=== PATIENT | male | born 1950 | race Caucasian/White ===

== ENCOUNTER 2019-07-05 11:23 | Outpatient (CLI) | payer OTHER, SELFPAY ==
--- NOTE | ~2019-07-05 | XR_ITS ---
EXAMINATION: XR chest 2V 07/05/2019 11:43 INDICATION: Cough and congestion PROCEDURE: PA and lateral views of the chest COMPARISON: Comparison to multiple prior studies sequentially, with oldest reviewed study dated 12/02. FINDINGS: The lungs are clear. The cardiomediastinal silhouette is within normal limits. There are no pleural effusions. There is no pneumothorax suspected. IMPRESSION: 1: NO ACUTE CARDIOPULMONARY DISEASE. Reviewed, dictated and finalized at location A.
== END 2019-07-05 11:24 | disposition home or self-care (01) ==
LOC: ANHIMG 11:30
PROVIDERS: PCP Family Medicine; Visit Provider Nurse Practitioner Family
DX: R05 Cough (principal); R09.89 Other specified symptoms and signs involving the circulatory and respiratory systems
CPT/HCPCS: 71046

== ENCOUNTER → 2020-01-12 12:00 | Outpatient (CLI) | payer OTHER, SELFPAY ==
--- NOTE | ~2020-01-12 | XR_ITS ---
EXAMINATION: XR chest 2V DATE: 01/12/2020 12:22 INDICATION: Cough. TECHNIQUE: Frontal and lateral views of the chest were obtained. COMPARISON: Chest 2 views 07/05/19, CT abdomen and pelvis 10/22/2018 FINDINGS: The chest demonstrates clear lungs without pneumonia, pleural effusion, or pneumothorax. Th e heart size is normal. IMPRESSION: 1. No acute cardiopulmonary disease. Reviewed, dictated and finalized at location B. N MALLOW DIPPER
== END ==
PROVIDERS: Visit Provider Physician Assistant Medical
DX: R05 Cough (principal)
CPT/HCPCS: 71046

== ENCOUNTER 2020-03-27 13:28 | Outpatient (CLI) | payer OTHER, SELFPAY ==
--- NOTE | 2020-03-30 14:08 | WPDPFTINT ---
PFT Interpretation PFT Interpretation: This PFT met all criteria for ATS standards and reproducibility FEV/FVC post bronchodilator 70% FEV1 78% or 2.42 liters FVC 76% or 3.47 liters TLC 102% RV 128% RV/TLC 48% DLCO 80% when adjusted for alveolar volume but not adjusted for hemoglobin Flow volume loops appeared normal Impression: Mild to moderate airflow obstruction with air trapping and borderline diffusion capacity. This pattern may be suggestive of COPD. Clinical correlation is advised.
== END 2020-03-27 13:29 | disposition home or self-care (01) ==
PROVIDERS: PCP Family Medicine; Visit Provider Physician Assistant Medical
DX: R05 Cough (principal); R06.02 Shortness of breath; R94.2 Abnormal results of pulmonary function studies
CPT/HCPCS: 94060; 94726; 94729

== ENCOUNTER 2020-04-10 10:10 | Emergency (ER) | payer OTHER, SELFPAY ==
[2020-04-10] VITALS (18 sets, daily range): BP systolic 158–204; BP diastolic 89–126; PULSE 54–71; RESP 10–20; TEMP 36.6; O2SAT 91–97
--- NOTE | ~2020-04-10 | XR_ITS ---
XR chest 2V 04/10/2020 12:39 Indication: Hemoptysis Procedure: PA and lateral views of the chest Comparison: Comparison to multiple prior studies sequentially, with oldest reviewed study dated 04/22. Findings: Heart size normal. No focal air space disease, pulmonary edema, pleural effusion or suspect ed pneumothorax. No acute osseous abnormality. Impression: 1: No acute cardiopulmonary disease. Reviewed, dictated and finalized at location B. OR ENERGY TRADER Impression: 1: No acute cardiopulmonary disease.
--- NOTE | ~2020-04-10 | CT_ITS ---
EXAMINATION: CTA chest PE protocol DATE: 04/10/2020 13:33 INDICATION: Hemoptysis, shortness of breath with exertion TECHNIQUE: Computed tomography angiography (CTA) of the chest was performed with 200 mL Omnipaque-350 intravenous contrast timed to evaluate the pulmonary arteries. Coronal maximum intensity projection 3D-reconstructions were created by the technologist. The dose-length product (DLP) was 1848.86 mGy-cm . Automated exposure control and iterative reconstruction technique were employed. COMPARISON: None. FINDINGS: The pulmonary arteries are well-opacified. No pulmonary embolism is identified. There are m inimal opacities of the lung bases and lingula. No pleural effusion or pneumothorax is identified. Th ere is mild bilateral hilar lymphadenopathy. The heart size is normal. There are bridging osteophytes at multiple levels in the spine, consistent with diffuse idiopathic skeletal hyperostosis (DISH). Th ere is a partially imaged cystic lesion of the body of the pancreas. IMPRESSION: 1. No pulmonary embolism identified. 2. Patchy opacities of the lower lobes and lingula, pneumonia versus atelectasis. 3. Mild bilateral hilar lymphadenopathy, likely reactive. 4. Cystic lesion of the pancreatic body. Differential is as previously described. Follow-up with endo scopic ultrasound and surgical consultation are recommended if not previously performed. Reviewed, dictated and finalized at location A. ANY SECRETARY IMPRESSION: 1. No pulmonary embolism identified. 2. Patchy opacities of the lower lobes and lingula, pneumonia versus atelectasi s. 3. Mild bilateral hilar lymphadenopathy, likely reactive. 4. Cystic lesion of the pancreatic body. Differential is as previously describe d. Follow-up with endoscopic ultrasound and surgical consultation are recommend ed if not previously performed.
--- NOTE | 2020-04-10 11:55 | ECG_ITS ---
Measurements Intervals [place] Rate: 54 P: 12 AR: 119 QRS: 11 QRSD: 106 T: 12 QT: 447 QTc: 424 Interpretive Statements SINUS BRADYCARDIA WITH SINUS ARRHYTHMIA WITH SHORT AR INTERVAL INFERIOR INFARCT, AGE INDETERMINATE BORDERLINE T WAVE ABNORMALITY- ANTEROLATERAL LEADS BASELINE WANDER- I, II, AVR, AVL, V1-V6 ABNORMAL ECG Electronically Signed On 04-10-2020 13:48:59 [employer] MACHINE FEEDER by Sree Díaz D.O.
--- NOTE | 2020-04-10 11:56 | ED.GENADULT ---
HPI - General Adult General Chief complaint: Unspecified Stated complaint: coughing up blood Time Seen by Provider: 04/10/20 11:43 Source: patient Mode of arrival: ambulatory Limitations: no limitations History of Present Illness HPI narrative: This patient is a 69 year old male with history of COPD , hyperlipidemia and hypertension who presents for evaluation of hemoptysis. He reports he has been dealing with a cough for 1 year. He was diagnosed with COPD 1 week ago, and he has been started on Trelogy. He states he thought he was doing better. Today he noticed blood when he started coughing. He states it was a mixture of mucous and blood. Just on arrival he states the bleeding is less. He states initially it quantifies blood as size of a rice. He denies chest pain, fever, chills, epistaxis or bleeding issues. He denies taking blood thinners. He denies shortness of breath but reports he does get sob with exertion. Related Data Home Medications Medication Instructions Recorded Confirmed dulaglutide 1.5 mg/0.5 mL 1.5 mg SUB-Q WEEKLY 08/26/19 02/02/20 subcutaneous pen injector Allergies Allergy/AdvReac Type Severity Reaction Status Date / Time metformin Allergy Mild Unknown Verified 04/10/20 12:49 Review of Systems Review of Systems: Narrative: CONSTITUTIONAL: Denies fever, chills, or sweats. EYES: Denies visual changes, redness, or discharge. ENT: Denies rhinorrhea, congestion, sore throat, or otalgia. CARDIOVASCULAR: Denies chest pain, palpitations, or edema. RESPIRATORY: Reports cough, hemoptysis GASTROINTESTINAL: Denies abdominal pain, nausea, vomiting, or diarrhea. GENITOURINARY: Denies dysuria or hematuria. SKIN: Denies rash or itching. MUSCULOSKELETAL: Denies back pain, joint pain, or myalgia. NEUROLOGIC: Denies headache, numbness, or weakness. PSYCHIATRIC: Denies anxiety or depression. All systems reviewed & are unremarkable except as noted in HPI and below PMFSH Past Medical History Medical History Anemia DM w/o complication type II Essential (primary) hypertension Family history of colon cancer in father Hepatic steatosis Idiopathic gout of right shoulder Iron deficiency anemia Kidney malignancy Kidney stones Lesion of pancreas FIDELIA on CPAP Family History Family History Mother Hypertension Family history of coronary artery disease Father Family history of diabetes mellitus in first degree relative Carcinoma of colon Family history of type 2 diabetes mellitus Family history of congestive heart failure Sibling Family history of diabetes mellitus in first degree relative Hypertension Family history of type 2 diabetes mellitus Social History Social History Smoking status: Never smoker Alcohol intake: never Exam Narrative: Exam Narrative: GENERAL: Well-appearing, well-nourished, and in no acute distress. HEAD: Normocephalic, atraumatic EYES: PERRLA and EOMI, conjunctiva clear without discharge THROAT:Mucous membranes moist, Oropharynx normal without erythema, exudate, peritonsillar swelling or fluctuance NECK: Supple, without lymphadenopathy or mass RESPIRATORY: No respiratory distress, Airway patent, Respirations non-labored, Clear to auscultation without rales, rhonchi or wheeze HEART: Regular rate and rhythm. No murmur heard. Normal peripheral pulses. ABDOMEN: Soft, nontender, nondistended, normal active bowel sounds. No masses. No rebound or guarding, No organomegaly. EXTREMITIES: No edema, normal strength with full range of motion. SKIN: Warm, dry, normal color without rash NEURO: Alert and oriented x3. CN 2-12 grossly intact. No focal deficits. PSYCH: Normal mood and affect. Course Reevaluation(s) Reevaluation #1: I discussed case with patient. I discussed plan to discharge on antibiotics and discuss
[2020-04-10 12:13] LABS: Basophils Absolute Auto 0.1 K/mm3 (0.0-0.1); Basophils Percent Auto 0.9 % (0.2-1.2); Eosinophils Absolute Auto 0.3 K/mm3 (0-0.3); Eosinophils Percent Auto 4.3 % (0-4.4); Hematocrit 37.6 % (42.0-52.0); Hemoglobin 12.7 g/dL (14.0-18.0); Immature Granulocyte Absolute 0.04 K/mm3 (0.00-0.031); Immature Granulocyte Percent A 0.5 % (0-0.5); Lymphocytes Absolute Auto 1.93 K/mm3 (0.9-3.2); Lymphocytes Percent Auto 24.3 % (18.3-44.2); Mean Corpuscular HGB Conc 33.8 g/dl (32-36); Mean Corpuscular Volume 88.7 fl (80-100); Mean Platelet Volume 9.8 fl (7.4-10.4); Monocytes Absolute Auto 0.5 K/mm3 (0.1-0.6); Monocytes Percent Auto 5.8 % (2.6-8.5); Neutrophils Absolute Auto 5.1 K/mm3 (1.3-6.7); Neutrophils Percent Auto 64.2 % (45.5-73.1); Platelet Count Result 176 k/mm3 (150-375); Red Blood Count 4.24 M/mm3 (4.6-6.20); Red Cell Distribution Width 14.4 % (11.5-14.5); White Blood Count 7.9 K/mm3 (4.5-10.0)
[2020-04-10 12:24] LABS: Alanine Aminotransferase 54 U/L (4-50); Albumin Level 4.3 g/dL (3.5-5.1); Alkaline Phosphatase 84 U/L (38-126); Anion Gap 5 mmol/L (8-16); Aspartate Amino Transferase 64 U/L (17-59); Bilirubin,Total 0.7 mg/dL (0.2-1.3); Blood Urea Nitrogen 18 mg/dL (9-20); Calcium 9.1 mg/dL (8.4-10.2); Carbon Dioxide 31 mmol/L (22-30); Chloride 105 mmol/L (98-107); Estimated CRCL calculation 105 ml/min; Estimated Glomerular Filt Rate > 60; Glucose 162 mg/dL (75-110); Potassium 4.3 mmol/L (3.4-5.0); Sodium 141 mmol/L (137-145)
[2020-04-10 12:25] LABS: INR 0.9; Prothrombin Time 12.9 Seconds (11.1-14.7)
[2020-04-10 12:26] LABS: Partial Thromboplastin Time 26.6 SECONDS (22.3-36.8)
--- NOTE | 2020-04-10 12:57 | PC.NURSE ---
all tests resulted. waiting for further orders vs disposition from provider.
--- NOTE | 2020-04-10 13:16 | PC.NURSE ---
provider in room.
--- NOTE | 2020-04-10 13:19 | PC.NURSE ---
patient to CT.
--- NOTE | 2020-04-10 14:26 | PC.NURSE ---
all tests resulted. resting on stretcher. has been assisted to use the restroom. alert. oriented.
[2020-04-10] MEDS: LOSARTAN POTASSIUM 50 MG TABLET PO (14:35)
--- NOTE | 2020-04-10 14:42 | PC.NURSE ---
covid swab done.
[2020-04-10 23:24] LABS: SARS-CoV-2 RNA PCR Negative
== END 2020-04-10 15:02 | disposition home or self-care (01) ==
PROVIDERS: Emergency Provider General Practice; PCP Family Medicine
DX: J18.9 Pneumonia, unspecified organism (principal); I10 Essential (primary) hypertension; K86.2 Cyst of pancreas; Z20.822 Contact with and (suspected) exposure to COVID-19; E11.9 Type 2 diabetes mellitus without complications; J44.9 Chronic obstructive pulmonary disease, unspecified; M10.011 Idiopathic gout, right shoulder; D50.9 Iron deficiency anemia, unspecified; Z87.442 Personal history of urinary calculi; G47.33 Obstructive sleep apnea (adult) (pediatric); Z85.528 Personal history of other malignant neoplasm of kidney; R00.1 Bradycardia, unspecified; R94.31 Abnormal electrocardiogram [ECG] [EKG]
CPT/HCPCS: 36415; 71046; 71275; 80053; 85025; 85610; 85730; 93005; 99284; A9270; C9803; Q9967; U0003; U0005

== ENCOUNTER → 2020-08-05 00:38 | Outpatient (CLI) | payer OTHER, SELFPAY ==
[2020-08-05 19:37] LABS: SARS-CoV-2 RNA PCR Negative
== END ==
PROVIDERS: PCP Family Medicine; Visit Provider Internal Medicine Gastroenterology
DX: Z01.812 Encounter for preprocedural laboratory examination (principal); Z20.822 Contact with and (suspected) exposure to COVID-19
CPT/HCPCS: C9803; U0003; U0005

== ENCOUNTER 2020-08-09 01:17 | Day surgery (SDC) | payer OTHER, SELFPAY ==
[2020-08-02 13:21] VITALS: BMI 39.6
[2020-08-09 09:38] VITALS: BP 162/87; PULSE 60; RESP 18; TEMP 36.2; O2SAT 99
[2020-08-09] MEDS: LACTATED RINGERS 1,000 ML 150 ML IV CONT (09:48)
[2020-08-09 09:54] LABS: Glucose Point of Care 157 mg/dl (65-105)
--- NOTE | 2020-08-09 10:01 | WPDANESEPPF ---
Anes - Initial Pre Proc Eval Procedure: Operation Date: 08/09/20 10:30 Proposed Procedures p Esophagogastroduodenoscopy & Colonoscopy - Ney Hernandez MD Date/Time: 08/09/20 10:01 Surgeon: Ney Hernandez MD Pre Op Diagnosis: Iron def. Anemia Patient Data Age: 70 Gender: M Height: 5 ft 11 in Weight: 129.6 kg Last Vital Signs Temp 97.2 F L 08/09/20 09:38 Pulse 60 08/09/20 09:38 Resp 18 08/09/20 09:38 BP 162/87 H 08/09/20 09:38 Pulse Ox 99 08/09/20 09:38 Allergies Allergy/AdvReac Type Severity Reaction Status Date / Time metformin Allergy Mild Unknown Verified 08/09/20 09:36 Home Medications Medication Instructions Recorded Confirmed Type dulaglutide 1.5 mg/0.5 mL 1.5 mg SUB-Q WEEKLY 08/26/19 08/02/20 History subcutaneous pen injector escitalopram oxalate 10 mg tablet 10 mg PO DAILY #90 tablet 10/18/19 08/02/20 Rx albuterol sulfate 90 mcg/actuation See Rx Instructions .ROUTE 03/07/20 08/02/20 Rx aerosol inhaler .COMPLEX #54 gm allopurinol 300 mg tablet 300 mg PO DAILY #90 tablet 03/14/20 08/02/20 Rx losartan 100 mg tablet 100 mg PO DAILY #30 tablet 05/03/20 08/02/20 Rx ferrous sulfate 325 mg (65 mg See Rx Instructions .ROUTE 06/01/20 08/02/20 Rx iron) tablet .COMPLEX #90 tablet montelukast 10 mg tablet 10 mg PO DAILY #30 tablet 06/01/20 08/02/20 Rx rosuvastatin 20 mg tablet See Rx Instructions .ROUTE 07/02/20 08/02/20 Rx .COMPLEX #90 tablet emipyhywwlh-iqlwmzhsa-emdwexub 1 inh INHALATION DAILY 08/02/20 08/02/20 History [Trelegy Ellipta] Laboratory Tests 08/09/20 09:51 POC Capillary Glucose 157 mg/dl H mg/dl (65-105) Patient hx anesthesia problems: none Family hx anesthesia problems: none PMFSH Past Medical History Medical History Anemia BMI 39.0-39.9,adult DM w/o complication type II Essential (primary) hypertension Family history of colon cancer in father Hepatic steatosis Idiopathic gout of right shoulder Iron deficiency anemia Kidney malignancy Kidney stones Lesion of pancreas FIDELIA on CPAP Family History Family History Mother Hypertension Family history of coronary artery disease Father Family history of diabetes mellitus in first degree relative Carcinoma of colon Family history of type 2 diabetes mellitus Family history of congestive heart failure Sibling Family history of diabetes mellitus in first degree relative Hypertension Family history of type 2 diabetes mellitus Social History Social History (Updated 06/07/20 @ 09:19 by Mala Ramos) Smoking status: Never smoker Alcohol intake: never Substance use: current Substance use type: marijuana Living arrangements: with family Spiritual care concerns: No Anes - Eval Final PreProcedure Day of Procedure 08/09/20 10:01 Patient weight: morbidly obese Heart: regular rate and rhythm Lungs: clear to auscultation Airway: Mallampati scale class III Neurological: alert and oriented Last oral intake: >/= 8 hours ASA classification: IV Emergent: no Anesthetic plan: proceed Anesthesia type and monitoring: general GIVS and standard monitoring Informed Consent: The patient's anesthetic plan and its attendant risks and benefits were discussed with the patient/family/POA. Questions were solicited and answers provided to the satisfaction of the patient/family/POA.
--- NOTE | 2020-08-09 10:08 | PM.HPGS ---
History of Present Illness History of Present Illness Consent: Risks, benefits, and alternatives have been discussed and questions answered. Patient agrees to proceed with procedure. Chief complaint: Iron def. Anemia Narrative: Jorge Turcios is a 70 year old male here for egd and colonoscopy, with BETH but denies overt-gib, history of right kidney cancer s/p nephrectomy 3 years ago, had pancreatic cyst 2015 with EUS revealed benign lesion and normal egd. Also last colonoscopy 2018 with polyp, father with colon cancer. He also has sister diagnosed with Yepez syndrome (had gynecological malignancy), he has not been tested. Also abnormal CT scan in 2019 that showed possible lesion in bladder, 3.6 cm pancreatic cyst (larger than previously) Review of Systems Constitutional: Constitutional: Denies headache(s) and Denies weakness Eyes: Eyes: Denies blurry vision ENT: Reports Normal hearing present, Denies headache(s) and Denies neck pain Cardiovascular: Cardiovascular: Denies chest pain and Denies dyspnea Respiratory: Respiratory: Denies dyspnea Gastrointestinal: Gastrointestinal: Reports no additional gastrointestinal complaints Genitourinary: Genitourinary: Denies dysuria Musculoskeletal: Musculoskeletal: Denies neck pain Integumentary/Breasts: Skin/Breast: Denies dry skin Neurologic: Reports Normal hearing present, Denies headache(s) and Denies weakness Psychiatric: Psychiatric: Denies anxiety Endocrine: Endocrine: Denies change in body appearance Hematologic/Lymphatic: Hematologic/Lymphatic: Denies easy bleeding Allergic/Immunologic: Allergic/Immunologic: Denies urticaria PMFSH Past Medical History Medical History (Updated 08/09/20 @ 10:09 by Ney Hernandez MD) Anemia BMI 39.0-39.9,adult DM w/o complication type II Essential (primary) hypertension Family history of colon cancer in father Hepatic steatosis Idiopathic gout of right shoulder Iron deficiency anemia Iron deficiency anemia Kidney malignancy Kidney stones Lesion of pancreas FIDELIA on CPAP Family History Family History Mother Hypertension Family history of coronary artery disease Father Family history of diabetes mellitus in first degree relative Carcinoma of colon Family history of type 2 diabetes mellitus Family history of congestive heart failure Sibling Family history of diabetes mellitus in first degree relative Hypertension Family history of type 2 diabetes mellitus Social History Social History (Updated 06/07/20 @ 09:19 by Mala Ramos) Smoking status: Never smoker Alcohol intake: never Substance use: current Substance use type: marijuana Living arrangements: with family Spiritual care concerns: No Meds Home Medications and Allergies Home Medications Medication Instructions Recorded Confirmed Type dulaglutide 1.5 mg/0.5 mL 1.5 mg SUB-Q WEEKLY 08/26/19 08/02/20 History subcutaneous pen injector escitalopram oxalate 10 mg tablet 10 mg PO DAILY #90 tablet 10/18/19 08/02/20 Rx albuterol sulfate 90 mcg/actuation See Rx Instructions .ROUTE 03/07/20 08/02/20 Rx aerosol inhaler .COMPLEX #54 gm allopurinol 300 mg tablet 300 mg PO DAILY #90 tablet 03/14/20 08/02/20 Rx losartan 100 mg tablet 100 mg PO DAILY #30 tablet 05/03/20 08/02/20 Rx ferrous sulfate 325 mg (65 mg See Rx Instructions .ROUTE 06/01/20 08/02/20 Rx iron) tablet .COMPLEX #90 tablet montelukast 10 mg tablet 10 mg PO DAILY #30 tablet 06/01/20 08/02/20 Rx rosuvastatin 20 mg tablet See Rx Instructions .ROUTE 07/02/20 08/02/20 Rx .COMPLEX #90 tablet pbofiyfajqp-hulwjgtqj-xlurlspu 1 inh INHALATION DAILY 08/02/20 08/02/20 History [Ramin Buckner] Allergies Allergy/AdvReac Type Severity Reaction Status Date / Time metformin Allergy Mild Unknown Verified 08/09/20 09:36 Vital Signs Vital Signs - 24 hr 08/09/20 09:38 Temperature 97.2 F L Pulse Rate 60 Respiratory Rat
[2020-08-09 10:57] VITALS: BP 119/73; PULSE 63; RESP 20; O2SAT 96
[2020-08-09 11:07] VITALS: BP 128/71; PULSE 60; RESP 14; O2SAT 95
[2020-08-09 11:17] VITALS: BP 134/82; PULSE 56; RESP 19; O2SAT 96
== END 2020-08-09 11:30 | disposition home or self-care (01) ==
PROVIDERS: PCP Family Medicine; Visit Provider Internal Medicine Gastroenterology
PROC: 0DJ08ZZ Inspection of Upper Intestinal Tract, Via Natural or Artificial Opening Endoscopic (ICD-10-PCS; CPT 43235; principal; 2020-08-09 10:30)
DX: D50.9 Iron deficiency anemia, unspecified (principal); D12.2 Benign neoplasm of ascending colon; D12.4 Benign neoplasm of descending colon; K63.5 Polyp of colon; K64.8 Other hemorrhoids; K86.9 Disease of pancreas, unspecified; Z80.0 Family history of malignant neoplasm of digestive organs; K29.70 Gastritis, unspecified, without bleeding; Z79.51 Long term (current) use of inhaled steroids; E11.9 Type 2 diabetes mellitus without complications; I10 Essential (primary) hypertension; K76.0 Fatty (change of) liver, not elsewhere classified; M10.011 Idiopathic gout, right shoulder; G47.33 Obstructive sleep apnea (adult) (pediatric); Z85.528 Personal history of other malignant neoplasm of kidney; F12.90 Cannabis use, unspecified, uncomplicated; E66.01 Morbid (severe) obesity due to excess calories; Z68.39 Body mass index [BMI] 39.0-39.9, adult; Z90.5 Acquired absence of kidney
CPT/HCPCS: 45380; 45385; 43239; 82948; 88305; C9803; J2250; J2704; J7120; U0003; U0005

== ENCOUNTER 2021-10-26 06:53 | Outpatient (CLI) | payer MEDICARE, SELFPAY ==
--- NOTE | ~2021-10-26 | MR_ITS ---
EXAMINATION: MR MRCP wo/w con/w 3D wo ind DATE: 10/26/2021 08:42 INDICATION: Pancreatic cyst TECHNIQUE: Magnetic resonance imaging (MRI) of the abdomen was performed without and with intravenous contrast. Sequences included coronal T2-weighted SS-FSE ARC, coronal T2-weighted FS SS-FSE, coronal T2-weighted 2D FS FIESTA, Water:Coronal LAVA-Flex, sagittal T2-weighted SS-FSE ARC, axial SSFSE ARC, axial 3D DualEcho, axial DWI B=600, axial T1-weighted LAVA, FAT:Coronal LAVA-Flex, and coronal in and opposed phase LAVA-Flex. Thick-slab T2-weighted FRFSE-XL images were obtained for magnetic resonance cholangiopancreatography (MRCP). Maximum intensity projection 3-D reconstructions of the volumetric data were created by the technologist. Postcontrast sequences included a time course of axial T1-weig hted LAVA, FAT:Coronal LAVA-Flex, coronal in and opposed phase LAVA-Flex, and Water:Coronal LAVA-Flex . COMPARISON: 05/22/2017 CONTRAST: Multihance, 20 cc FINDINGS: ABDOMEN MRI: Cysts of the liver measure up to 11 mm in the right hepatic lobe. There is loss of hepat ic parenchymal signal on opposed phase imaging, consistent with hepatic steatosis. The spleen, gallbl adder, and adrenal glands are normal. There are changes of right nephrectomy. There is a 7 mm hemorrh agic cyst of the left kidney. The left kidney is otherwise unremarkable. There is a 1.2 cm periportal lymph node. There are no dilated loops of bowel. There is a 4.7 x 3.2 cm cystic lesion of the pancre as with continued interval enlargement. There are multiple smaller cystic lesions in the body and the tail of the pancreas which measure up to 6 mm. ABDOMEN MRCP: The cystic mass in the body of the pancreas does not definitely communicate with the ma in pancreatic duct. 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 The pancreatic duct is upper limits of normal in size in the head measuring 4 mm. There is no intrahepatic or extrahepatic biliary dilatation. The common bile duct measures up to 5 mm. IMPRESSION: 1. Enlarging cystic lesion in the body of the pancreas with differential as previously described. Rec ommend correlation for history of pancreatitis. Consider evaluation with endoscopic ultrasound and lugo rgical consultation if not previously performed. 2. Diffuse hepatic steatosis. Reviewed, dictated and finalized at location B. IMPRESSION: 1. Enlarging cystic lesion in the body of the pancreas with differential as pre viously described. Recommend correlation for history of pancreatitis. Consider evaluation with endoscopic ultrasound and surgical consultation if not previous ly performed. 2. Diffuse hepatic steatosis.
== END 2021-10-26 06:54 | disposition home or self-care (01) ==
PROVIDERS: PCP Family Medicine; Visit Provider Nurse Practitioner Family
DX: K86.2 Cyst of pancreas (principal); K76.0 Fatty (change of) liver, not elsewhere classified
CPT/HCPCS: 74183; 76376; A9577

== ENCOUNTER 2022-07-09 08:58 | Inpatient (IN) | payer MEDICARE, SELFPAY ==
[2022-07-09] VITALS (15 sets, daily range): BP systolic 130–168; BP diastolic 69–110; PULSE 70–93; RESP 10–18; TEMP 36.3–36.8; O2SAT 94–100
--- NOTE | ~2022-07-09 | CT_ITS ---
EXAMINATION: CT abdomen pelvis w con DATE: 07/09/2022 10:12 INDICATION: Nausea, vomiting, jaundice and bad taste in the mouth. TECHNIQUE: Computed tomography (CT) of the abdomen and pelvis was performed with 100 mL Omnipaque-350 intravenous contrast. Automated exposure control and iterative reconstruction technique were employe d. The dose-length product was 827.15 mGy-cm. COMPARISON: MRCP dated 10/26/[address] dated 10/22/2018 FINDINGS: Unchanged mild discoid atelectasis/scarring in the left lower lobe. Heart size is normal. Atheroscler otic coronary artery calcification. No pericardial or pleural effusion. Likely reactive distal paraes ophageal lymph node which measures up to 11 mm in maximal short axis diameter unchanged since 10/23/19 19. Spleen and bilateral adrenal glands are normal. 2 mm stone at an upper pole calyx of the left kid riky and 2-3 mm stone at a lower pole calyx. 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 There is mild left hydroureteronephrosis with subtle in creased density in the bladder in the region of the left ureteral orifice. Status post right nephrect jose. With small amount of fluid in the distal right ureteral remnant. There is a new 5.1 x 4.3 x 4.9 cm mixed cystic and enhancing solid mass at the head of the pancreas. There is new moderate atrophy of the more distal pancreas and dilation of the main pancreatic duct. C ontinued slight interval increase in size of a now 3.9 cm diffusely cystic-appearing lesion at the valerie dy of the pancreas which appears to communicate with the main pancreatic duct. Likely secondary moder ate intra and extrahepatic biliary ductal dilation. There is also dilation the gallbladder which freida ures up to 6 cm in maximal diameter with bladder wall thickening and pericholecystic stranding and mi nimal pericholecystic fluid consistent with acute cholecystitis. Moderate-sized fat-containing umbilical hernia and small fat-containing ventral hernia originating ap proximately 2.5 cm to the right of the umbilical hernia. Bowels including the appendix are normal. Vines rgical clip at the exit of the right inguinal canal. No free intraperitoneal gas or fluid. And seen i s small amount of peripheral calcification at a portacaval lymph node which is increased in size from 1.5 cm to 1.8 cm and which could be metastatic or reactive. No other pathologically enlarged abdomin al or pelvic lymphadenopathy. Chronic nodular densities with calcification in the subcutaneous tissue s at the lateral right buttock which could represent sequela of trauma, fat necrosis or injection gra nuloma. Mild scattered degenerative skeletal changes. Unchanged small sclerotic bone island at the an terior right supra-acetabular region. No other suspicious lytic or blastic bone lesions. IMPRESSION: 1. Acute cholecystitis which along with moderate intra and extrahepatic biliary ductal dilation likel y related to obstruction from a 5.1 cm mixed cystic and solid mass at the head of the pancreas suspic ious for either primary pancreatic cancer or metastatic disease related to prior right renal transiti onal cell carcinoma. 2. Increase in size of a portacaval lymph node now measuring 1.8 cm short axis diameter suspicious fo r metastatic disease. 3. 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 Could consider further e valuation with either ultrasound or CT urogram. 4. Moderate-sized fat-containing umbilical hernia and adjacent small right-sided periumbilical ventra l hernia. Reviewed, dictated and finalized at location A.
[2022-07-09 09:06] LABS: Glucose Point of Care 299 mg/dl (65-105)
--- NOTE | 2022-07-09 09:09 | ED.GENADULT ---
HPI - General Adult General Chief complaint: Unspecified <MORELIA Peoples Last Filed: 07/11/22 18:48> Stated complaint: multiple compliants <MORELIA Peoples Last Filed: 07/11/22 18:48> Time Seen by Provider: 07/09/22 09:07 <MORELIA Peoples Last Filed: 07/11/22 18:48> Source: patient and family <MORELIA Peoples Last Filed: 07/11/22 18:48> Mode of arrival: ambulatory <MORELIA Peoples Last Filed: 07/11/22 18:48> Limitations: no limitations <MORELIA Peoples Last Filed: 07/11/22 18:48> History of Present Illness HPI narrative: Patient is a 72 y/o male who presents to the ED with his sister with multiple complaints. Patient reports having a nasty taste in his mouth any time he eats or drinks anything for the last 2 months. He denies an acid or metal/metallic taste but is unable to describe this taste any further. He reports he develops dry mouth very quickly and has had decreased PO intake due to this taste. He c/o intermittent nausea and vomiting, vomiting last occurring last night, described as yellow brown emesis. He has had intermittent pain in his LUQ and right sided abdomen, but denies any currently. He states he coughed up phlegm this morning and noticed a small streak of blood, which prompted his presentation. He has not taken his home medications in the last few days due to not feeling well. He also reports having dark urine and constipation for last 4-5 days, denies dysuria, hematuria, fevers, CP, SOB, rectal bleeding. <MORELIA Peoples Last Filed: 07/11/22 18:48> Related Data Home medications: Home Medications Medication Instructions Recorded Confirmed icosapent ethyl 1 gram capsule 2 g PO BID 02/26/22 07/09/22 (Vascepa) dulaglutide 1.5 mg/0.5 mL 4.5 mg subcut WEEKLY 05/30/22 07/09/22 subcutaneous pen injector (Trulicity) escitalopram oxalate 10 mg tablet 10 mg PO DAILY 07/09/22 07/09/22 rosuvastatin 20 mg tablet 20 mg PO DAILY 07/09/22 07/09/22 <Jesusita Jordan PA-C - Last Filed: 07/11/22 18:48> Allergies/adverse reactions: Allergies Allergy/AdvReac Type Severity Reaction Status Date / Time metformin Allergy Mild Unknown Verified 07/09/22 09:22 cefditoren AdvReac Mild diarrhea Verified 07/09/22 09:22 <MORELIA Peoples Last Filed: 07/11/22 18:48> Review of Systems Review of Systems: CONSTITUTIONAL: Denies fever, chills, or sweats. ENT: See HPI. CARDIOVASCULAR: Denies chest pain, palpitations, or edema. RESPIRATORY: See HPI. GASTROINTESTINAL: See HPI. GENITOURINARY: See HPI. SKIN: Denies rash or itching. MUSCULOSKELETAL: Denies back pain, joint pain, or myalgia. NEUROLOGIC: Denies headache, numbness, or weakness. <MORELIA Peoples Last Filed: 07/11/22 18:48> All systems reviewed & are unremarkable except as noted in HPI and below <MORELIA Peoples Last Filed: 07/11/22 18:48> [facility] Past Medical History Medical History: Medical History Abnormal findings on imaging of biliary tract Adenomatous colon polyp Anemia BMI 33.0-33.9,adult BMI 39.0-39.9,adult DM w/o complication type II Essential (primary) hypertension Family history of colon cancer in father Gastritis Hepatic steatosis Idiopathic gout of right shoulder IPMN (intraductal papillary mucinous neoplasm) Iron deficiency anemia Iron deficiency anemia Kidney malignancy Kidney stones Lesion of pancreas FIDELIA on CPAP Pancreatic cyst <MORELIA Peoples Last Filed: 07/11/22 18:48> Surgical History Surgical History: Surgical History History of nephrectomy on the right <Jesusita Jordan PA-C - Last Filed: 07/11/22 18:48> Family History Family History: Family History
[2022-07-09 09:34] LABS: Basophils Percent Auto 0.2 % (0.2-1.2); Eosinophils Percent Auto 0.2 % (0-4.4); Hematocrit 43.5 % (42.0-52.0); Hemoglobin 13.8 g/dL (14.0-18.0); Immature Granulocyte Absolute 0.06 K/mm3 (0.00-0.031); Immature Granulocyte Percent A 0.5 % (0-0.5); Lymphocytes Absolute Auto 2.14 K/mm3 (0.9-3.2); Lymphocytes Percent Auto 16.8 % (18.3-44.2); Mean Corpuscular HGB Conc 31.7 g/dl (32-36); Mean Corpuscular Hemoglobin 29.4 pg (26-34); Mean Corpuscular Volume 92.6 fl (80-100); Mean Platelet Volume 11.2 fl (7.4-10.4); Monocytes Absolute Auto 0.6 K/mm3 (0.1-0.6); Monocytes Percent Auto 4.5 % (2.6-8.5); Neutrophils Absolute Auto 9.9 K/mm3 (1.3-6.7); Neutrophils Percent Auto 77.8 % (45.5-73.1); Platelet Count Result 251 k/mm3 (150-375); Red Cell Distribution Width 14.4 % (11.5-14.5); White Blood Count 12.7 K/mm3 (4.5-10.0)
[2022-07-09 09:38] LABS: Appearance Urine Clear (Clear); Bacteria Urine None Seen /hpf; Bilirubin Urine Negative (Negative); Blood Urine Negative (Negative); Color Urine Dark Yellow (Yellow); Glucose Urine UA 3+ mg/dL (Negative); Ketones Urine 3+ mg/dL (Negative); Leukocyte Esterase Ur Negative LEU/UL (Negative); Nitrate Urine Negative (Negative); Non Pathogenic Casts 0-2; Protein Urine 1+ mg/dL (Negative); RBC Urine 0-2 /hpf (0-2); Squamous Epithelial Cell Urine None seen /hpf (Few); WBC Urine 0-5 /hpf
[2022-07-09 09:39] LABS: Add Urine Microscopic? YES; Specific Grav Ur 1.041 (1.001-1.035)
[2022-07-09] MEDS: SODIUM CHLORIDE 0.9% IV 1,000 ML 999 ML IV CONT ×2 (09:40→12:28)
[2022-07-09] MEDS: PANTOPRAZOLE SODIUM IV 40 MG VIAL IV PUSH (09:40)
[2022-07-09 09:46] LABS: INR 1.1; Partial Thromboplastin Time 29.3 SECONDS (22.3-36.8); Prothrombin Time 14.4 Seconds (11.1-14.7)
[2022-07-09 09:48] LABS: Lactic Acid Reflex 1.8 mmol/L (0.7-2.0)
[2022-07-09 09:51] LABS: Alanine Aminotransferase 288 U/L (6-50); Albumin Level 4.3 g/dL (3.5-5.1); Anion Gap 19 mmol/L (8-16); Aspartate Amino Transferase 186 U/L (17-59); Bilirubin,Total 2.7 mg/dL (0.2-1.3); Blood Urea Nitrogen 12 mg/dL (9-20); Calcium 9.7 mg/dL (8.4-10.2); Carbon Dioxide 25 mmol/L (22-30); Chloride 101 mmol/L (98-107); Estimated CRCL calculation 102 ml/min; Estimated Glomerular Filt Rate > 60; Glucose 343 mg/dL (65-110); Lipase 397 U/L (23-300); Magnesium 2.3 mg/dL (1.6-2.3); Potassium 2.9 mmol/L (3.4-5.0); Sodium 145 mmol/L (137-145)
[2022-07-09 09:56] LABS: Alkaline Phosphatase 1496 U/L (38-126)
[2022-07-09] MEDS: PIPERACILLN/TAZ 3.375GM/NS50ML 3.375 GM/50 ML BAG IVPB ×2 (12:19→18:36)
[2022-07-09 12:24] LABS: Fractional Inspired Oxygen 21 %; HCO3 VBG 21.2 mEq/l (24.0-30.0); PCO2 VBG 37.9 mmHg (42.0-48.0); pH VBG 7.366 (7.300-7.400)
[2022-07-09 12:27] LABS: Device ROOM AIR
[2022-07-09] MEDS: POTASSIUM CHLORIDE INJ 40 MEQ in SODIUM CHLORIDE 0.9% IV 500 ML 130 MEQ IVPB (12:28)
[2022-07-09 12:40] LABS: Phosphorus 2.5 mg/dL (2.5-4.5)
[2022-07-09 13:06] LABS: Beta-Hydroxybutyrate/Acetoacetate 5.62 mmol/L (0.02-0.27)
[2022-07-09 13:25] LABS: Glucose Point of Care 236 mg/dl (65-105)
--- NOTE | 2022-07-09 17:30 | PC.NURSE ---
Pt awaiting bed at [facility]
--- NOTE | 2022-07-09 17:30 | PC.NURSE ---
Ordered Dinner for patient
[2022-07-09] MEDS: SODIUM CHLORIDE 0.9% IV 1,000 ML 100 ML IV CONT (20:56)
[2022-07-10] VITALS (7 sets, daily range): BP systolic 158–175; BP diastolic 83–112; PULSE 64–88; RESP 14–20; TEMP 36.3; O2SAT 98–100
[2022-07-10] MEDS: PIPERACILLN/TAZ 3.375GM/NS50ML 3.375 GM/50 ML BAG IVPB ×3 (05:25→18:06)
[2022-07-10] MEDS: SODIUM CHLORIDE 0.9% IV 1,000 ML 100 ML IV CONT ×2 (08:36→16:51)
--- NOTE | 2022-07-10 10:49 | PC.NURSE ---
Pt ambulated to restroom at this time. Pt is becoming agitated and restless. Pt states he is upset about being in this ER and not eating for days and not having a hospital bed at this time. Reassured pt. Updated on POC. Fluids infusing. At this time pt is refusing morning medications, states he may take them after the restroom.
[2022-07-10 10:53] LABS: INR 1.2; Prothrombin Time 15.7 Seconds (11.1-14.7)
[2022-07-10 10:54] LABS: Alanine Aminotransferase 154 U/L (6-50); Albumin Level 3.5 g/dL (3.5-5.1); Alkaline Phosphatase 1165 U/L (38-126); Anion Gap 18 mmol/L (8-16); Aspartate Amino Transferase 73 U/L (17-59); Bilirubin,Total 1.9 mg/dL (0.2-1.3); Blood Urea Nitrogen 11 mg/dL (9-20); Calcium 8.6 mg/dL (8.4-10.2); Carbon Dioxide 17 mmol/L (22-30); Chloride 113 mmol/L (98-107); Estimated CRCL calculation 102 ml/min; Estimated Glomerular Filt Rate > 60; Glucose 207 mg/dL (65-110); Lipase 674 U/L (23-300); Partial Thromboplastin Time 29.4 SECONDS (22.3-36.8); Potassium 3.6 mmol/L (3.4-5.0); Sodium 148 mmol/L (137-145)
[2022-07-10 11:01] LABS: Basophils Percent Auto 0.4 % (0.2-1.2); Eosinophils Percent Auto 0.1 % (0-4.4); Hematocrit 38.4 % (42.0-52.0); Hemoglobin 11.9 g/dL (14.0-18.0); Immature Granulocyte Absolute 0.03 K/mm3 (0.00-0.031); Immature Granulocyte Percent A 0.4 % (0-0.5); Lymphocytes Absolute Auto 1.53 K/mm3 (0.9-3.2); Lymphocytes Percent Auto 18.7 % (18.3-44.2); Mean Corpuscular Hemoglobin 29.3 pg (26-34); Mean Corpuscular Volume 94.6 fl (80-100); Mean Platelet Volume 11.3 fl (7.4-10.4); Monocytes Absolute Auto 0.3 K/mm3 (0.1-0.6); Monocytes Percent Auto 3.9 % (2.6-8.5); Neutrophils Absolute Auto 6.3 K/mm3 (1.3-6.7); Neutrophils Percent Auto 76.5 % (45.5-73.1); Platelet Count Result 192 k/mm3 (150-375); Red Blood Count 4.06 M/mm3 (4.6-6.20); Red Cell Distribution Width 14.5 % (11.5-14.5); White Blood Count 8.2 K/mm3 (4.5-10.0)
--- NOTE | 2022-07-10 11:02 | PC.NURSE ---
Pt refused all of his home medications. Pt states I usually take all my medications with food and i haven't ate in 3 days
--- NOTE | 2022-07-10 14:40 | PC.NURSE ---
Called sister Pily and gave update on pt status. [phone]. Sister is aware still waiting on bed.
[2022-07-10 14:50] LABS: Glucose Point of Care 175 mg/dl (65-105)
--- NOTE | 2022-07-10 18:30 | PC.NURSE ---
BS 568
--- NOTE | 2022-07-10 22:09 | PC.NURSE ---
Called [facility] transfer center. [facility] is still currently full so most likely will not be getting a bed tonight.
[2022-07-10] MEDS: ROSUVASTATIN 10 MG TABLET 20 MG PO (23:16)
[2022-07-10] MEDS: ESCITALOPRAM OXALATE 10 MG TABLET PO (23:17)
[2022-07-10] MEDS: LOSARTAN POTASSIUM 100 MG TABLET PO (23:17)
[2022-07-10] MEDS: allopurinoL 300 MG TABLET PO (23:17)
[2022-07-10] MEDS: METOPROLOL SUCCINATE EXT REL 25 MG TABCR PO (23:17)
[2022-07-11] MEDS: PIPERACILLN/TAZ 3.375GM/NS50ML 3.375 GM/50 ML BAG IVPB ×4 (02:39→23:57)
[2022-07-11] MEDS: SODIUM CHLORIDE 0.9% IV 1,000 ML 100 ML IV CONT ×3 (02:42→21:21)
--- NOTE | 2022-07-11 06:27 | PC.NURSE ---
Pt put regional recruiter light to use the bathroom. When this RN entered pt's room to hook him back up to his IV, pt states You don't need to hook me back up because my sister's coming to pick me up at 7. I'm tired of waiting . This RN explained to pt that he would be leaving AMA and is risking clinical deterioration up to and including . Pt verbalized understanding that he is taking his life into his own hands. This RN repeatedly explained to pt that just because he drives himself to [facility] that there will not be a bd ready for him when he gets there. This RN also repeatedly informed pt that he will have to start his workup all over again and most likely still have to wait at [facility]. Pt verbalized understanding and states, I'll wait for my sister to get here at 7. This RN called pt's sister Pily and explained that pt wants to leave AMA. Explained risks of leaving and benefits of staying. Pily reported to this RN that she never agreed to come pick pt up. Pily wants pt to remain in the ER and that she will call her brother. Informed pt that he will be getting a call from his sister.
--- NOTE | 2022-07-11 09:43 | PC.NURSE ---
RN obtained labs as laborer laboratory was unsuccessful. Pt updated. Pt does not want to be on a continuous VS monitor, provided education but still declines. VS obtained and documented. Pt denies any pain or other needs at this time. Pt also not wanting to take his inhaler, states he doesn't need it currently.
[2022-07-11 09:45] VITALS: BP 163/93; PULSE 70; RESP 16; O2SAT 100
[2022-07-11 09:52] LABS: Basophils Percent Auto 0.4 % (0.2-1.2); Eosinophils Percent Auto 0.3 % (0-4.4); Hematocrit 34.9 % (42.0-52.0); Hemoglobin 11.1 g/dL (14.0-18.0); Immature Granulocyte Absolute 0.06 K/mm3 (0.00-0.031); Immature Granulocyte Percent A 0.9 % (0-0.5); Lymphocytes Absolute Auto 1.57 K/mm3 (0.9-3.2); Lymphocytes Percent Auto 23.2 % (18.3-44.2); Mean Corpuscular HGB Conc 31.8 g/dl (32-36); Mean Corpuscular Hemoglobin 29.5 pg (26-34); Mean Corpuscular Volume 92.8 fl (80-100); Mean Platelet Volume 10.4 fl (7.4-10.4); Monocytes Absolute Auto 0.3 K/mm3 (0.1-0.6); Monocytes Percent Auto 3.7 % (2.6-8.5); Neutrophils Absolute Auto 4.8 K/mm3 (1.3-6.7); Neutrophils Percent Auto 71.5 % (45.5-73.1); Platelet Count Result 163 k/mm3 (150-375); Red Blood Count 3.76 M/mm3 (4.6-6.20); Red Cell Distribution Width 14.2 % (11.5-14.5); White Blood Count 6.8 K/mm3 (4.5-10.0)
[2022-07-11 10:03] LABS: Alanine Aminotransferase 207 U/L (6-50); Albumin Level 3.2 g/dL (3.5-5.1); Anion Gap 15 mmol/L (8-16); Aspartate Amino Transferase 345 U/L (17-59); Bilirubin,Total 2.3 mg/dL (0.2-1.3); Blood Urea Nitrogen 8 mg/dL (9-20); Calcium 8.4 mg/dL (8.4-10.2); Carbon Dioxide 19 mmol/L (22-30); Chloride 112 mmol/L (98-107); Estimated CRCL calculation 102 ml/min; Estimated Glomerular Filt Rate > 60; Glucose 238 mg/dL (65-110); Sodium 146 mmol/L (137-145)
[2022-07-11 10:08] LABS: Alkaline Phosphatase 1432 U/L (38-126)
--- NOTE | 2022-07-11 10:57 | PC.NURSE ---
Bed Status update - no beds at this time patient remains on wait list
[2022-07-11 15:38] VITALS: BP 174/83; PULSE 70; TEMP 36.4; O2SAT 100
[2022-07-11 19:13] VITALS: BP 168/94; PULSE 64; RESP 17; O2SAT 98
[2022-07-11 20:02] VITALS: BP 152/82; PULSE 95; RESP 16; TEMP 36.6; O2SAT 100
[2022-07-11 20:05] VITALS: BMI 28.9
--- NOTE | 2022-07-11 20:05 | ADMGEN ---
This patient, Jorge Turcios, was admitted to Medical Room 250-01. Patient/family oriented to hospital policies and general routines including ID bracelet, bed and alarms, visiting hours, pain management, procedures, bathroom and other care routines, personal items, smoking policy, room service/diet, and visiting hours. Information on how to activate the Rapid Response Team has been discussed. Patient/Family are encouraged to report perceived risks to care and to ask questions if they do not understand what they are told or what they should do.
--- NOTE | 2022-07-11 20:54 | PM.IMHP ---
H&P: HPI History of Present Illness Date/Time: 07/11/22 20:54 Chief Complaint: Nausea and abdominal pain Narrative: this is a 72-year-old male patient who initially came to the emergency room with his sister with multiple complaints. The patient has been having a the sore taste in his mouth every time he eats or drinks something for the last 2 months. He stated that is more of a metallic taste. He also has a very dry mouth and has had decreased oral intake. He has intermittent incontinence of nausea and vomiting. The patient came to the emergency room on 07/09/2022. He was also complaining of some intermittent pain the left upper quadrant and right-sided pain. The patient has been coughing up some phlegm and noticed a streak of blood in the phlegm. He has not taken any of his home medications for the last few days because he has been feeling ill. He has been having some dark urine and constipation for least 4-[address] was read as a following 1. Acute cholecystitis which along with moderate intra and extrahepatic biliary ductal dilation likely related to obstruction from a 5.1 cm mixed cystic and solid mass at the head of the pancreas suspicious for either primary pancreatic cancer or metastatic disease related to prior right renal transitional cell carcinoma. 2. Increase in size of a portacaval lymph node now measuring 1.8 cm short axis diameter suspicious for metastatic disease. 3. Mild left hydroureteronephrosis with subtle increased density in the bladder along the region of the ureteral orifice which raises some concern for urothelial carcinoma in this patient with a prior transitional cell carcinoma of the right renal pelvis post right nephrectomy. Could consider further evaluation with either ultrasound or CT urogram. 4. Moderate-sized fat-containing umbilical hernia and adjacent small right-sided periumbilical ventral hernia. he was started on Zosyn and given his home medications. The patient has been awaiting a bed at [facility]. The patient continues to wait for [facility] bed. [facility] call today and still no bed for the patient. It was decided at that time to allow the patient to come into the hospital to wait for a bed at [facility] or [facility]. As per ER noteDiscussed case with [facility] transfer center at 1316 who was able to contact Dr. Hubbard, hepatobiliary specialist, directly, requested direct admission to hospitalist service at [facility].? Discussed case with Dr. Mehta @ 1400, hospitalist at [facility], accepted patient for admission.? Awaiting bed placement.? Patient agrees w/ plan.?<Jesusita Jordan PA-C - Last Filed: 07/11/22 18:48> his potassium was noted to be 3.0 today. Blood sugars 238. Total bilirubin 2.3. AST 345 and ALT is 207. Echo lung phosphatase 1432. The patient is being admitted to observation status on the date of service of 07/11/2022. Review of Systems Review of Systems: All systems reviewed & are unremarkable except as noted in HPI and below Constitutional: Constitutional: Reports as per HPI and Reports no additional constitutional complaints Eyes: Eyes: Reports as per HPI and Reports no additional eye complaints ENT: Reports system reviewed and no additional complaints, except as documented and Reports Normal hearing present Cardiovascular: Cardiovascular: Reports no additional cardiovascular complaints Respiratory: Respiratory: Reports no additional respiratory complaints and Reports no additional respiratory complaints Gastrointestinal: Gastrointestinal: Reports as per HPI and Reports no additional gastrointestinal complaints Musculoskeletal: Musculoskeletal: Reports no additional musculoskeletal complaints Integumentary/Breasts: Skin/Breast: Reports system reviewed and no additional complaints, except as docu and Reports as per HPI Neurologic: Reports system reviewed and no additional complaints, except as documented, Reports as per H
[2022-07-12] MEDS: INSULIN ASPART (*BKC) 100 UNITS/ML SUB-Q ×2 (00:04→12:38)
[2022-07-12 00:18] LABS: Glucose Point of Care 223 mg/dl (65-105)
[2022-07-12] MEDS: PIPERACILLN/TAZ 3.375GM/NS50ML 3.375 GM/50 ML BAG IVPB ×4 (05:01→23:33)
[2022-07-12 05:04] LABS: Basophils Absolute Auto 0.1 K/mm3 (0.0-0.1); Basophils Percent Auto 0.8 % (0.2-1.2); Eosinophils Percent Auto 0.7 % (0-4.4); Hemoglobin 11.3 g/dL (14.0-18.0); Immature Granulocyte Absolute 0.06 K/mm3 (0.00-0.031); Lymphocytes Absolute Auto 1.64 K/mm3 (0.9-3.2); Lymphocytes Percent Auto 27.7 % (18.3-44.2); Mean Corpuscular HGB Conc 31.4 g/dl (32-36); Mean Corpuscular Hemoglobin 28.8 pg (26-34); Mean Corpuscular Volume 91.6 fl (80-100); Mean Platelet Volume 10.6 fl (7.4-10.4); Monocytes Absolute Auto 0.3 K/mm3 (0.1-0.6); Monocytes Percent Auto 5.1 % (2.6-8.5); Neutrophils Absolute Auto 3.8 K/mm3 (1.3-6.7); Neutrophils Percent Auto 64.7 % (45.5-73.1); Platelet Count Result 182 k/mm3 (150-375); Red Blood Count 3.93 M/mm3 (4.6-6.20); White Blood Count 5.9 K/mm3 (4.5-10.0)
[2022-07-12 05:10] LABS: Hemoglobin A1C 11.2 % (<5.7)
[2022-07-12 05:11] LABS: Lactic Acid Reflex 0.7 mmol/L (0.7-2.0)
[2022-07-12 05:15] LABS: Alanine Aminotransferase 272 U/L (6-50); Albumin Level 3.3 g/dL (3.5-5.1); Anion Gap 16 mmol/L (8-16); Aspartate Amino Transferase 460 U/L (17-59); Bilirubin,Total 2.7 mg/dL (0.2-1.3); Blood Urea Nitrogen 8 mg/dL (9-20); Calcium 8.4 mg/dL (8.4-10.2); Carbon Dioxide 20 mmol/L (22-30); Chloride 111 mmol/L (98-107); Estimated CRCL calculation 89 ml/min; Estimated Glomerular Filt Rate > 60; Glucose 197 mg/dL (65-110); Potassium 3.2 mmol/L (3.4-5.0); Sodium 147 mmol/L (137-145)
[2022-07-12 05:22] LABS: Alkaline Phosphatase 1651 U/L (38-126)
[2022-07-12 05:57] LABS: Thyroid Stimulating Hormone Reflex 0.363 uIU/mL (0.465-4.68)
[2022-07-12 06:39] VITALS: BP 146/83; PULSE 73; RESP 16; TEMP 36.9; O2SAT 100
[2022-07-12 07:12] LABS: Free T4 Free Thyroxine Reflex 0.82 ng/dL (0.78-2.19)
[2022-07-12] MEDS: POTASSIUM CHLORIDE INJ 40 MEQ in SODIUM CHLORIDE 0.9% IV 500 ML 130 MEQ IVPB (08:05)
[2022-07-12 08:06] VITALS: PULSE 78
[2022-07-12] MEDS: ESCITALOPRAM OXALATE 10 MG TABLET PO (08:06)
[2022-07-12] MEDS: METOPROLOL SUCCINATE EXT REL 25 MG TABCR PO (08:06)
[2022-07-12] MEDS: LOSARTAN POTASSIUM 100 MG TABLET PO (08:06)
[2022-07-12] MEDS: PANTOPRAZOLE SODIUM IV 40 MG VIAL IV PUSH ×2 (08:06→20:30)
[2022-07-12] MEDS: SODIUM CHLORIDE 0.9% IV 1,000 ML 100 ML IV CONT (08:07)
[2022-07-12 08:10] VITALS: O2SAT 99
[2022-07-12 08:16] LABS: Total Triiodothyronine (T3) 0.56 NG/ML (0.97-1.69)
[2022-07-12 12:20] LABS: Glucose Point of Care 255 mg/dl (65-105)
--- NOTE | 2022-07-12 12:26 | PM.IMPN ---
Progress Note: A&P Assessment and Plan (1) Acute cholecystitis: Code(s): K81.0 - Acute cholecystitis Status: Acute Assessment and Plan: Patient presents to the ED on 07/11/2022 with complaint of odd taste in his mouth as well as upper abdominal pain. CT abdomen pelvis revealing acute cholecystitis, 5.1 cm mixed cystic and solid mass at the head of the pancreas suspicious for primary or metastatic cancer, and concern for urothelial carcinoma. IV Zosyn to treat for acute cholecystitis. initially the surgeon was notified here and it was recommended that the patient be transferred to outside facility because this is thought to be due to pancreatic cancer. The patient is awaiting transfer to [facility] hepatic biliary specialist. The transfer center called [facility] and stated that they still to had not gotten a bed for him at [facility]. The patient is NPO except for medications. continue with IV fluids while in p.o. (2) Intrahepatic bile duct dilation: Code(s): K83.8 - Other specified diseases of biliary tract Status: Acute Assessment and Plan: The patient is awaiting transfer to hepatobiliary specialist at [facility]. (3) Diabetes mellitus with hyperglycemia: Qualifiers: Diabetes mellitus watermelon inspector insulin use: without watermelon inspector use Diabetes mellitus type: type 2 Qualified Code(s): E11.65 - Type 2 diabetes mellitus with hyperglycemia Code(s): E11.65 - Type 2 diabetes mellitus with hyperglycemia Status: Acute Assessment and Plan: Accu-Cheks every 6 hours with sliding scale insulin and hypoglycemic protein (4) COPD (chronic obstructive pulmonary disease): Qualifiers: COPD type: unspecified COPD Qualified Code(s): J44.9 - Chronic obstructive pulmonary disease, unspecified Code(s): J44.9 - Chronic obstructive pulmonary disease, unspecified Status: Acute Assessment and Plan: Continue with home inhaler. He is on albuterol at home and fluticasone. (5) Essential (primary) hypertension: Code(s): I10 - Essential (primary) hypertension Status: Acute Assessment and Plan: Continue with metoprolol and losartan (6) FIDELIA on CPAP: Code(s): G47.33 - Obstructive sleep apnea (adult) (pediatric); Z99.89 - Dependence on other enabling machines and devices Status: Acute Assessment and Plan: I did order a CPAP as per home settings. (7) Depression with anxiety: Code(s): F41.8 - Other specified anxiety disorders Status: Acute Assessment and Plan: continue with Lexapro Subjective Date/time seen: 07/12/22 12:26 Interval history: patient with no new concerns. Patient id impatently waiting for transfer. Review of Systems Review of Systems: All systems reviewed & are unremarkable except as noted in HPI and below Exam Narrative: GENERAL: Comfortable, no acute distress HENMT: moist mucous membranes EYES: EOM intact b/l NECK: no lymphadenopathy RESPIRATORY: clear to auscultation CARDIO: RRR GI: soft, mild tenderness throughout, bowel sounds present SKIN: no rashes EXTREMITIES: no edema, redness or tenderness Objective Data Vital Signs Vital Signs: Vital Signs - 24 hr 07/11/22 15:38 07/11/22 19:13 07/11/22 20:02 Temperature 97.5 F L 97.9 F Pulse Rate 70 64 95 Respiratory Rate 17 16 Blood Pressure 174/83 H 168/94 H 152/82 H Pulse Oximetry 100 98 100 Oxygen Delivery 07/11/22 20:58 07/12/22 06:39 07/12/22 08:06 Temperature 98.4 F Pulse Rate 73 78 Respiratory Rate 16 Blood Pressure 146/83 H Pulse Oximetry 100 Oxygen Delivery Room Air 07/12/22 08:10 07/12/22 08:22 Temperature Pulse Rate Respiratory Rate Blood Pressure Pulse Oximetry 99 Oxygen Delivery Room Air Room Air Intake/Output Intake/Output: Intake & Output 07/09/22
[2022-07-12 14:00] VITALS: BP 157/84; PULSE 70; RESP 20; TEMP 36.7; O2SAT 100
--- NOTE | 2022-07-12 15:21 | PC.NURSE ---
status update call from [facility] transfer center, VS reviewed and plan of care reviewed
--- NOTE | 2022-07-12 15:41 | WPDGICN ---
Assessment and Plan Assessment and plan (1) Intrahepatic bile duct dilation: Code(s): K83.8 - Other specified diseases of biliary tract Status: Acute Assessment and Plan: on CT he now has some biliary dilatation which is new. For that reason transfer to [facility] has been requested and accepted but of it is not yet available. He states that he has never been jaundiced but his sister has thought that he looked a little yellow recently. 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 He is followed by Dr. Hubbard at [facility]. (3) Acute cholecystitis: Code(s): K81.0 - Acute cholecystitis Status: Acute Assessment and Plan: He is not tender at this time but it was felt on admission that he had acute cholecystitis. Surgery was consulted and declined to treat him here because of his other biliary problems. (4) Elevated bilirubin: Code(s): R17 - Unspecified jaundice Status: Acute Assessment and Plan: Although elevated now, it appears to be stable. he is probably developing some obstructive process from the pancreatic cyst and may need stenting at some point in time. Plan Because he is no longer nauseated, from my perspective we can begin to advance his diet. He understands that we have nothing to offer him here in terms of his pancreatic cystic mass and according to the records from [place] it has been stable for 2 years and therefore not an acute problem. GI Consult Note Consult date/time: 07/12/22 15:41 HPI: Jorge Turcios is a 72 year old male who presented to the emergency room 3 days ago with complaints of a dry mouth, decreased oral intake, a metallic taste in his mouth, and abdominal pains. He also had been coughing. A CT scan was done which revealed among other things: IMPRESSION: 1. Acute cholecystitis which along with moderate intra and extrahepatic biliary ductal dilation likely related to obstruction from a 5.1 cm mixed cystic and solid mass at the head of the pancreas suspicious for either primary pancreatic cancer or metastatic disease related to prior right renal transitional cell carcinoma. 2. Increase in size of a portacaval lymph node now measuring 1.8 cm short axis diameter suspicious for metastatic disease. he has been followed by hepatobiliary specialist at [facility] for about 1 year. He has seen Dr. Gregg here and was referred to their specialist. Records that I see from [place] show that he has had a pancreatic cyst for about 2 years. On October of 2020 EUS was done. He was found to have a CEA 1980 in the cyst. 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 He was seen there in follow-up in December. An MRI/ MRCP last October revealed multiple cysts throughout the pancreas within the uncinate process the largest of which was 4.6 x 3.3 cm. He was seen then in the clinic by Dr. Latesha Hubbard, who felt that he was stable and recommended repeat MR CP in 6 months it was felt that his he has a low risk of malignancy based on the findings. At this time he is noted to have elevation of liver enzymes. Bilirubin is now 2.7 versus 0.6 last January. The patient today states he has no abdominal pain. He has been waiting in the emergency room for 3 days for transfer to [facility] but a bed has not yet become available. on presentation to the emergency room he was felt to have acute cholecystitis. Surgery was contacted and they felt that he could not be handled here and recommended that he be transferred. Review of Systems Review of Systems: All systems reviewed & are unremarkable except as noted in HPI and below PMFSH Past Medical History [facility]
[2022-07-12 17:03] LABS: Glucose Point of Care 178 mg/dl (65-105)
[2022-07-12 19:53] VITALS: BP 158/77; PULSE 63; RESP 16; TEMP 36.4; O2SAT 100
[2022-07-12 21:11] LABS: Glucose Point of Care 274 mg/dl (65-105)
[2022-07-13] MEDS: SODIUM CHLORIDE 0.9% IV 1,000 ML 100 ML IV CONT (03:56)
[2022-07-13] MEDS: PIPERACILLN/TAZ 3.375GM/NS50ML 3.375 GM/50 ML BAG IVPB (05:21)
[2022-07-13 06:19] VITALS: BP 153/88; PULSE 65; RESP 14; TEMP 36.4; O2SAT 100
[2022-07-13 06:31] LABS: Basophils Absolute Auto 0.1 K/mm3 (0.0-0.1); Basophils Percent Auto 1.2 % (0.2-1.2); Eosinophils Absolute Auto 0.1 K/mm3 (0-0.3); Eosinophils Percent Auto 1.2 % (0-4.4); Hematocrit 36.9 % (42.0-52.0); Hemoglobin 11.5 g/dL (14.0-18.0); Immature Granulocyte Absolute 0.04 K/mm3 (0.00-0.031); Immature Granulocyte Percent A 0.7 % (0-0.5); Lymphocytes Absolute Auto 1.62 K/mm3 (0.9-3.2); Lymphocytes Percent Auto 28.8 % (18.3-44.2); Mean Corpuscular HGB Conc 31.2 g/dl (32-36); Mean Corpuscular Hemoglobin 28.8 pg (26-34); Mean Corpuscular Volume 92.3 fl (80-100); Monocytes Absolute Auto 0.3 K/mm3 (0.1-0.6); Monocytes Percent Auto 5.2 % (2.6-8.5); Neutrophils Absolute Auto 3.5 K/mm3 (1.3-6.7); Neutrophils Percent Auto 62.9 % (45.5-73.1); Platelet Count Result 187 k/mm3 (150-375); Red Cell Distribution Width 14.2 % (11.5-14.5); White Blood Count 5.6 K/mm3 (4.5-10.0)
[2022-07-13 06:43] LABS: Alanine Aminotransferase 244 U/L (6-50); Albumin Level 3.5 g/dL (3.5-5.1); Anion Gap 12 mmol/L (8-16); Aspartate Amino Transferase 228 U/L (17-59); Bilirubin,Total 2.7 mg/dL (0.2-1.3); Blood Urea Nitrogen 7 mg/dL (9-20); Calcium 8.5 mg/dL (8.4-10.2); Carbon Dioxide 25 mmol/L (22-30); Chloride 109 mmol/L (98-107); Estimated CRCL calculation 89 ml/min; Estimated Glomerular Filt Rate > 60; Glucose 226 mg/dL (65-110); Potassium 2.9 mmol/L (3.4-5.0); Sodium 146 mmol/L (137-145)
[2022-07-13 07:21] LABS: Alkaline Phosphatase 1599 U/L (38-126)
--- NOTE | 2022-07-13 07:22 | WPDGIPROGNO ---
Progress Note: A&P Assessment and Plan (1) Intrahepatic bile duct dilation: Code(s): K83.8 - Other specified diseases of biliary tract Status: Acute Assessment and Plan: on CT he now has some biliary dilatation which is new. For that reason transfer to [facility]. has been requested and accepted but of it is not yet available. He states that he has never been jaundiced but his sister has thought that he looked a little yellow recently. 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 He is followed by Dr. Hubbard at [facility]. Still awaiting transfer to [facility] if a bed becomes available (3) Acute cholecystitis: Code(s): K81.0 - Acute cholecystitis Status: Acute Assessment and Plan: He is not tender at this time but it was felt on admission that he had acute cholecystitis. Surgery was consulted and declined to treat him here because of his other biliary problems. he has no abdominal pain or tenderness. I doubt that he has acute cholecystitis. I will advance his diet. (4) Elevated bilirubin: Code(s): R17 - Unspecified jaundice Status: Acute Assessment and Plan: Although elevated now, it appears to be stable. he is probably developing some obstructive process from the pancreatic cyst and may need stenting at some point in time. No significant change in LFTs today Plan Because he is no longer nauseated, from my perspective we can begin to advance his diet. He understands that we have nothing to offer him here in terms of his pancreatic cystic mass and according to the records from [place] it has been stable for 2 years and therefore not an acute problem. Subjective Date/time seen: 07/13/22 07:22 he denies any abdominal pain or nausea this morning. He states he greatly enjoyed his clear liquids last night and is hungry. He slept well last night. Exam Const: General: cooperative and healthy appearing Orientation/consciousness: patient oriented x3 HENMT: Head: normal to inspection Ears: hearing grossly impaired Mouth: Yes Normal oral and palatal mucosa present Eyes: General: appearance normal, both eyes and all related structures Neck: Neck: normal visual inspection Chest: Chest palpation & inspection: normal inspection of the chest Resp: Effort & Inspection: normal respiratory effort Auscultation: clear to auscultation bilaterally Cardio: Rate: regular rate Rhythm: regular rhythm GI: Inspection: normal to inspection Auscultation: normal bowel sounds Skin: General skin exam: normal color and no jaundice Neuro: General: patient oriented x3 Speech: normal speech Objective Data Vital Signs Vital Signs: Vital Signs - 24 hr 07/12/22 08:06 07/12/22 08:10 07/12/22 08:22 Temperature Pulse Rate 78 Respiratory Rate Blood Pressure Pulse Oximetry 99 Oxygen Delivery Room Air Room Air 07/12/22 14:00 07/12/22 19:53 07/12/22 20:00 Temperature 36.7 C 36.4 C Pulse Rate 70 63 Respiratory Rate 20 16 Blood Pressure 157/84 H 158/77 H Pulse Oximetry 100 100 Oxygen Delivery Room Air 07/13/22 06:19 Temperature 36.4 C Pulse Rate 65 Respiratory Rate 14 Blood Pressure 153/88 H Pulse Oximetry 100 Oxygen Delivery Intake/Output Intake/Output: Intake & Output 07/10/22 07/11/22 07/12/22 07/13/22 23:59 23:59 23:59 23:59 Intake Total 2150 3150 3550 450 Balance 2150 3150 3550 450 Meds/Results Medications: Active Medications Generic Name Dose Route Start Last Admin Trade Name Freq PRN Reason Stop Dose Admin Albuterol 2 puff 07/11/22 22:55 Albuterol Sulfate (*Sp) Aerosol 1 Puff INHALATION Q4H PRN Shortness Of Br
[2022-07-13 08:06] VITALS: PULSE 68
[2022-07-13] MEDS: PANTOPRAZOLE SODIUM IV 40 MG VIAL IV PUSH (08:06)
[2022-07-13] MEDS: POTASSIUM CHLORIDE 20 MEQ PACKET (FOR LIQUID) 60 MEQ PO (08:06)
[2022-07-13] MEDS: METOPROLOL SUCCINATE EXT REL 25 MG TABCR PO (08:06)
--- NOTE | 2022-07-13 08:07 | PM.TDS ---
Transfer Discharge Sum: Prov Provider Date of admission: 07/12/22 09:47 Primary care physician: Ritchie Mederos MD Admitting clinician: Chase Bo MD Consults: 07/11/22 18:42 Consult to Physician Routine Comment: Consulting Provider: Mariusz Brown Reason for consultation: Acute cholecystitis r/t pancreatic cyst obstructing biliary duct Has provider been notified: Yes DS: Admitting Diagnosis Discharge Date 07/13/22 Admitting Diagnosis Acute cholecystitis, pancreatic mass DS: Discharge Diagnosis Discharge Diagnosis (1) Acute cholecystitis: Code(s): K81.0 - Acute cholecystitis Status: Acute Assessment and Plan: Patient presents to the ED on 07/11/2022 with complaint of odd taste in his mouth as well as upper abdominal pain. CT abdomen pelvis revealing acute cholecystitis, 5.1 cm mixed cystic and solid mass at the head of the pancreas suspicious for primary or metastatic cancer, and concern for urothelial carcinoma. IV Zosyn to treat for acute cholecystitis. initially the surgeon was notified here and it was recommended that the patient be transferred to outside facility because this is thought to be due to pancreatic cancer. The patient is awaiting transfer to [facility] hepatic biliary specialist. The transfer center called [facility] and stated that they still to had not gotten a bed for him at [facility]. advance diet as tolerated. (2) Intrahepatic bile duct dilation: Code(s): K83.8 - Other specified diseases of biliary tract Status: Acute Assessment and Plan: The patient is awaiting transfer to hepatobiliary specialist at [facility]. (3) Diabetes mellitus with hyperglycemia: Qualifiers: Diabetes mellitus intermodal dispatcher insulin use: without fci use Diabetes mellitus type: type 2 Qualified Code(s): E11.65 - Type 2 diabetes mellitus with hyperglycemia Code(s): E11.65 - Type 2 diabetes mellitus with hyperglycemia Status: Acute Assessment and Plan: Accu-Cheks every 6 hours with sliding scale insulin and hypoglycemic protein (4) COPD (chronic obstructive pulmonary disease): Qualifiers: COPD type: unspecified COPD Qualified Code(s): J44.9 - Chronic obstructive pulmonary disease, unspecified Code(s): J44.9 - Chronic obstructive pulmonary disease, unspecified Status: Acute Assessment and Plan: Continue with home inhaler. He is on albuterol at home and fluticasone. (5) Essential (primary) hypertension: Code(s): I10 - Essential (primary) hypertension Status: Acute Assessment and Plan: Continue with metoprolol and losartan (6) FIDELIA on CPAP: Code(s): G47.33 - Obstructive sleep apnea (adult) (pediatric); Z99.89 - Dependence on other enabling machines and devices Status: Acute Assessment and Plan: I did order a CPAP as per home settings. (7) Depression with anxiety: Code(s): F41.8 - Other specified anxiety disorders Status: Acute Assessment and Plan: continue with Lexapro Transfer Discharge Sum: Med Medications Active and Home Medications: Home Medications albuterol sulfate 90 mcg/actuation aerosol inhaler See Rx Instructions .Route .COMPLEX #54 grams 03/07/20 [Rx Confirmed 07/09/22] allopurinol 300 mg tablet 300 mg PO DAILY #90 tabs 01/21/22 [Rx Confirmed 07/09/22] icosapent ethyl 1 gram capsule (Vascepa) 2 g PO BID 02/26/22 [History Confirmed 07/09/22] losartan 100 mg tablet 100 mg PO DAILY #30 tabs 03/21/22 [Rx Confirmed 07/09/22] metoprolol succinate 25 mg tablet,extended release 24 hr 25 mg PO DAILY #30 tabs 04/21/22 [Rx Confirmed 07/09/22] budesonide 160 mcg-glycopyr 9 mcg-formot 4.8 mcg/actuation HFA inhaler (Breztri Aerosphere) See Rx Instructions .Route .COMPLEX #10.7 grams 05/08/22 [Rx Confirmed 07/09/22] dulaglutide 1.5 mg/0.5 mL
[2022-07-13] MEDS: LOSARTAN POTASSIUM 100 MG TABLET PO (08:11)
[2022-07-13] MEDS: ESCITALOPRAM OXALATE 10 MG TABLET PO (08:11)
[2022-07-13 09:10] LABS: Glucose Point of Care 261 mg/dl (65-105)
[2022-07-13] MEDS: INSULIN ASPART (*BKC) 100 UNITS/ML SUB-Q (09:55)
== END 2022-07-13 10:25 | disposition short-term general hospital (02) | DRG 446 ==
LOC: ANHED 07-10 13:52 → ANH2MED 07-11 19:35
PROVIDERS: Emergency Medicine; General Practice; Nurse Practitioner; Admitting Provider Internal Medicine; Emergency Provider Physician Assistant; PCP Family Medicine; Visit Provider Internal Medicine Critical Care Medicine
DX: K81.0 Acute cholecystitis (principal); K86.9 Disease of pancreas, unspecified; I10 Essential (primary) hypertension; J44.9 Chronic obstructive pulmonary disease, unspecified; K83.8 Other specified diseases of biliary tract; E87.6 Hypokalemia; E11.65 Type 2 diabetes mellitus with hyperglycemia; D50.9 Iron deficiency anemia, unspecified; K76.0 Fatty (change of) liver, not elsewhere classified; N32.9 Bladder disorder, unspecified; M10.011 Idiopathic gout, right shoulder; Z86.010 Personal history of colon polyps; Z85.528 Personal history of other malignant neoplasm of kidney; Z90.5 Acquired absence of kidney; Z80.0 Family history of malignant neoplasm of digestive organs
CPT/HCPCS: 36415; 74177; 80053; 81001; 82010; 82803; 82948; 83036; 83605; 83690; 83735; 84100; 84439; 84443; 84480; 85025; 85610; 85730; 87040; 96361; 96365; 96366; 96368; 96375; 99285; A9270; C9113; G0378; J1815; J2543; J3480; J7030; J7040; Q9967

== ENCOUNTER 2022-12-04 12:24 | Observation (INO) | payer MEDICARE, SELFPAY ==
[2022-12-04] VITALS (16 sets, daily range): BP systolic 135–171; BP diastolic 69–109; PULSE 61–133; RESP 15–20; TEMP 36.4–36.9; O2SAT 91–100; BMI 32.1
--- NOTE | ~2022-12-04 | XR_ITS ---
EXAMINATION: XR chest 1V portable Exam Date/Time: 12/04/2022 14:32 CDT HISTORY: leg swelling Comparison: 04/10/2020. RESULT: Lines, tubes, and devices: None. Lungs and pleura: Minimal lower lung and peripheral reticular opacities Patchy subsegmental areas of airspace disease in the bilateral lung bases, greater in the left lung base. Cardiomediastinal silhouette: Stable. Other: No acute osseous or upper abdominal finding. IMPRESSION: Minimal interstitial edema. Subsegmental bibasilar atelectasis/consolidation. Reviewed, dictated and finalized at location K.
--- NOTE | ~2022-12-04 | US_ITS ---
EXAMINATION: US venous doppler [facility] DATE: 12/04/2022 15:50 INDICATION: Lower limb swelling TECHNIQUE: Grayscale ultrasound images without and with compression and Doppler ultrasound images of the bilateral lower extremity veins were obtained. COMPARISON: None. FINDINGS: The visualized portions of right common femoral vein, profunda (deep) femoral vein, femoral vein, pop liteal vein, posterior tibial veins, peroneal veins, anterior tibial vein and greater saphenous vein outflow are patent. The visualized portions of left common femoral vein, profunda femoral vein, femoral vein, popliteal v ein, posterior tibial veins, peroneal veins, anterior tibial vein and greater saphenous vein outflow are patent. IMPRESSION: 1. No deep venous thrombosis in either lower limb. Reviewed, dictated and finalized at location A.
--- NOTE | 2022-12-04 12:44 | ED.GIBLEED ---
HPI - GI Bleed General Chief complaint: GI Bleed Stated complaint: blood in stool Time Seen by Provider: 12/04/22 12:38 History of Present Illness HPI Narrative: Patient is a 72-year-old male with history of pancreatic mass, renal cell carcinoma status post right nephrectomy, hypertension, hyperlipidemia, GERD, sleep apnea, COPD here with abnormal labs from outpatient visit. Patient notes that over the last 3 weeks he has noted increased lower extremity swelling. He called and got in for a PCP appointment yesterday. At that visit they were concerned for his lower extremity swelling and sent basic labs. They called him today noting that his lab work was abnormal including a low hemoglobin and sent him into the emergency department for further evaluation. Of note patient does have a known pancreatic mass. He states that he 1st found out about it in 2014 and a biopsy was performed at that time. He had been told that it was a pancreatic cyst. He has had some continued weight loss as of recently as well as he vague abdominal pain and has a appointment for 12/06 for EGD, colonoscopy, and what sounds like a pancreatic mass biopsy at [facility]. He does note that he has been having some bright red blood per rectum. Patient notes that he thinks this has been present for several months but did notice that specifically of the last few weeks. Notes that it was bright red in color and associated with some painful defecation, no obvious hemorrhoid. He has been having diarrhea daily recently however today's stool did seem to be more formed and dark in color. His last colonoscopy and he was 1-2 years ago and noted that he had some polyps at that time which were found to be benign. He does have a family history of colon cancer. He is not currently undergoing treatment for his pancreatic mass. He denies known history of CHF and does not take any diuretics that he is aware of. Both legs have been increasingly more swollen and painful. No prior history of PE/DVT. He does note some increasing fatigue, unsure if he has had any worsening shortness of breath, always sleeps with 2 pillows at night. Related Data Home Medications Medication Instructions Recorded Confirmed escitalopram oxalate 10 mg tablet 10 mg PO DAILY 10/24/22 10/24/22 glucagon 0.5 mg/0.1 mL 1 mg subcut ONCE PRN Hypoglycemia 10/24/22 10/24/22 subcutaneous auto-injector (Gvoke HypoPen 1-Pack) insulin degludec 100 unit/mL (3 10 unit subcut QAM 11/26/22 mL) subcutaneous pen (Tresiba FlexTouch U-100 insulin) Allergies Allergy/AdvReac Type Severity Reaction Status Date / Time metformin Allergy Mild Unknown Verified 12/03/22 14:19 cefditoren AdvReac Mild diarrhea Verified 12/03/22 14:19 Review of Systems Review of Systems: All systems reviewed & are unremarkable except as noted in HPI and below PMFSH Past Medical History Medical History Abnormal findings on imaging of biliary tract Adenomatous colon polyp Anemia BMI 31.0-31.9,adult BMI 39.0-39.9,adult COPD (chronic obstructive pulmonary disease) DM w/o complication type II Essential (primary) hypertension Family history of colon cancer in father Gastritis Generalized weakness Hepatic steatosis Hyperlipidemia Idiopathic gout of right shoulder IPMN (intraductal papillary mucinous neoplasm) Iron deficiency anemia Iron deficiency anemia Kidney malignancy Kidney stones Lesion of pancreas Lesion of urinary bladder FIDELIA on CPAP Pancreatic cyst Pancreatic mass Type 2 diabetes mellitus Vasculitis Surgical History Surgical History History of nephrectomy on the right Family History Family History Mother Hypertension Family history of coronary artery disease Heart disease Father Family history of diabetes mellitus in first degree relative Carcinom
[2022-12-04 13:04] LABS: Basophils Percent Auto 0.3 % (0.2-1.2); Eosinophils Absolute Auto 0.1 K/mm3 (0-0.3); Eosinophils Percent Auto 0.7 % (0-4.4); Immature Granulocyte Absolute 0.01 K/mm3 (0.00-0.031); Immature Granulocyte Percent A 0.1 % (0-0.5); Lymphocytes Absolute Auto 1.33 K/mm3 (0.9-3.2); Lymphocytes Percent Auto 19.7 % (18.3-44.2); Mean Corpuscular Hemoglobin 24.3 pg (26-34); Mean Corpuscular Volume 90.3 fl (80-100); Mean Platelet Volume 11.6 fl (7.4-10.4); Monocytes Absolute Auto 0.4 K/mm3 (0.1-0.6); Monocytes Percent Auto 5.3 % (2.6-8.5); Neutrophils Percent Auto 73.9 % (45.5-73.1); Platelet Count Result 185 k/mm3 (150-375); Red Blood Count 2.26 M/mm3 (4.6-6.20); Red Cell Distribution Width 14.9 % (11.5-14.5); White Blood Count 6.8 K/mm3 (4.5-10.0)
[2022-12-04 13:05] LABS: Prothrombin Time 13.8 Seconds (11.1-14.7)
--- NOTE | 2022-12-04 13:05 | ECG_ITS ---
Measurements Intervals [place] Rate: 62 P: 2 OH: 124 QRS: 26 QRSD: 109 T: 31 QT: 407 QTc: 416 Interpretive Statements SINUS RHYTHM INCOMPLETE RIGHT BUNDLE BRANCH BLOCK [90+ ms QRS DURATION, TERMINAL R IN V1/V2, 40+ ms S IN I/aVL/V4/V5/V6] NONSPECIFIC T-WAVE ABNORMALITY COMPARED TO ECG 04/10/2020 12:28:46 SINUS RHYTHM NOW PRESENT INCOMPLETE RIGHT BUNDLE-BRANCH BLOCK NOW PRESENT T-WAVE ABNORMALITY NOW PRESENT Electronically Signed On 12-04-2022 19:18:08 CDT by Jolynn Rothman M.D.
[2022-12-04 13:06] LABS: Partial Thromboplastin Time 28.8 SECONDS (22.3-36.8)
[2022-12-04 13:08] LABS: Alanine Aminotransferase 16 U/L (6-50); Albumin Level 3.2 g/dL (3.5-5.1); Alkaline Phosphatase 120 U/L (38-126); Anion Gap 4 mmol/L (8-16); Aspartate Amino Transferase 23 U/L (17-59); Bilirubin,Total 0.5 mg/dL (0.2-1.3); Blood Urea Nitrogen 14 mg/dL (9-20); Calcium 7.8 mg/dL (8.4-10.2); Carbon Dioxide 26 mmol/L (22-30); Chloride 111 mmol/L (98-107); Estimated CRCL calculation 91 ml/min; Estimated Glomerular Filt Rate > 60; Glucose 146 mg/dL (65-110); Potassium 3.6 mmol/L (3.4-5.0); Sodium 141 mmol/L (137-145)
[2022-12-04 13:24] LABS: Hematocrit 20.4 % (42.0-52.0)
[2022-12-04 13:25] LABS: Hemoglobin 5.5 g/dL (14.0-18.0)
[2022-12-04 13:26] LABS: Anisocytosis 2+ (NORMAL); Hypochromasia 1+ (NORMAL); Platelet Estimate Adequate (Adequate)
[2022-12-04 13:27] LABS: Microcytosis 1+ (NORMAL); Schistocytes None Seen (NORMAL)
[2022-12-04 13:48] LABS: Lipase 20 U/L (23-300)
[2022-12-04 14:07] LABS: NT Pro B Type Natriuretic Pept 699 pg/mL (19.9-100); Troponin I < 0.012 ng/mL (0.000-0.034)
[2022-12-04] MEDS: PANTOPRAZOLE SODIUM IV 40 MG VIAL 80 MG IV PUSH (14:19)
[2022-12-04] MEDS: SODIUM CHLORIDE 0.9% IV 250 ML 30 ML IV CONT (14:41)
[2022-12-04] MEDS: TUBING, BLOOD SET 1 EACH XX (14:41)
--- NOTE | 2022-12-04 17:20 | PC.NURSE ---
1 unit PRBC completed. PT refusing 2nd unit PRBC until he can be in a comfortable room. PT know he is going to be admitted and reports he currently does not want to be tethered to IV and reports he needs to move around due to discomfort in room. ERP notified, charge nurse notifeied, house nurse notified. PT is A/O x 4, gait is steady with ambulation
--- NOTE | 2022-12-04 18:55 | ADMGEN ---
This patient, Jorge Turcios, was admitted to 3 [facility] Surg Room 307-01. Patient/family oriented to hospital policies and general routines including ID bracelet, bed and alarms, visiting hours, pain management, procedures, bathroom and other care routines, personal items, smoking policy, room service/diet, and visiting hours. Information on how to activate the Rapid Response Team has been discussed. Patient/Family are encouraged to report perceived risks to care and to ask questions if they do not understand what they are told or what they should do.
--- NOTE | 2022-12-04 21:40 | PC.NURSE ---
Pt refuses to tell this nurse his home meds, provider notified.
--- NOTE | 2022-12-04 22:00 | PC.NURSE ---
This nurse was told by recharger that the hospitalist said to put in patient code under her name. The physician told the recharger to complete the second unit of blood, recheck H&H 1 hour after completion, and administer 2 more units if hgb is less than 7. Second unit of PRBCs completed and this nurse ordered a follow-up H&H for 2240.
[2022-12-04 23:14] LABS: Hematocrit 22.9 % (42.0-52.0)
--- NOTE | 2022-12-04 23:18 | ECG_ITS ---
Measurements Intervals [place] Rate: 133 P: SC: 0 QRS: 12 QRSD: 109 T: -33 QT: 283 QTc: 422 Interpretive Statements ATRIAL FLUTTER/TACHYCARDIA WITH RAPID VENTRICULAR RESPONSE INCOMPLETE RIGHT BUNDLE BRANCH BLOCK [90+ ms QRS DURATION, TERMINAL R IN V1/V2, 40+ ms S IN I/aVL/V4/V5/V6] NONSPECIFIC ST & T-WAVE ABNORMALITY ABNORMAL RHYTHM ECG COMPARED TO ECG 12/04/2022 15:19:30 ATRIAL FLUTTER NOW PRESENT Electronically Signed On 12-05-2022 12:43:56 CDT by Prashant Villagomez M.D.
--- NOTE | 2022-12-04 23:25 | PM.IMHP ---
H&P: HPI History of Present Illness Date/Time: 12/04/22 23:25 Chief Complaint: Low hemoglobin Narrative: H&P/transfer summary 72-year-old male with a past medical history of obstructive sleep apnea, pancreatic mass, renal cell carcinoma status post nephrectomy, paroxysmal atrial fibrillation/flutter, hyperlipidemia, obstructive sleep apnea on CPAP, COPD and GERD who presented to the ER from home after hemoglobin returned critical from labs drawn yesterday. The patient, who is a poor historian, reports that he has been feeling increasingly weakness, fatigue, cold and pale. The patient has had a known mass in his pancreas mass since 2014. Appearance appears found to be consistent with branched intraductal papillary mucinous neoplasm. According to the scanned records at our facility patient had surveillance imaging October of 2020 the demonstrated increased size but benign morphology and a biopsy was performed at that time as well. He has been seen by physicians at [facility] (hepatobiliary) to be followed. He has had progressive weight loss, decreased appetite, intermittent nausea and frequent loose bowels over the last several weeks. He reports that he has been having several soft stools for the last couple of weeks. His stools initially were darker and formed. He reports that he has been having occasionally bloody stools for couple of months. But over the last couple of weeks it is been constant. In the ER and he was noted to have maroon and obviously bloody stools. He reports that the stool is maroon and bright red all that is on the toilet paper is blood. He reports that it is stringy like a blood clot. Since 22:00 the patient has actually had 3 large bowel movements. There is some dark brown to black stool present but for the most part the bedside commode is filled with actual blood and blood clots. The patient's hemoglobin on presentation the hospital was 5.5. Patient received 2 units of packed red blood cells. An hour after transfusion patient's hemoglobin had only increased to 6.7. Since the patient has completed his blood transfusion he has had 2 more large volume bloody stools. Just before midnight patient had flipped into a flutter with RVR. I went to evaluate the patient. He denies any chest pain. However he has been having intermittent nausea on and off for quite some time. He states that he is not on any cardiac medications. On review of the patient's external medication records it looks like the patient had been prescribed metoprolol XL in August for 90 day supply. He should of ran out of medication on the 16 of November. It does not look like the patient's medication was refilled again until the 12/02/2022. It sounds as if the patient has not yet picked up the medication because he said he is shopping around for a cheaper pharmacy. He is short of breath but has been having shortness of breath for the last couple of weeks he is also had associated increased lower extremity swelling. On exam he has tenderness of both anterior and posterior lower extremities as well as his feet. He just states that his neuropathy pain is worse. He has been having some increased shortness of breath with activity. He always has 2 pillow orthopnea and wears his CPAP religiously at night. He denies any known history of coronary disease. He received 80 mg of IV Protonix in the ER. He reports mild nausea but has not had any vomiting. He has been having urinary frequency but denies any dysuria. Postvoid residual was performed after my evaluation and demonstrated proximally 230 mL. The patient had 2 doses of IV metoprolol. His heart rate was in the 120s to 130s. When he would get up to the bedside commode patient's heart rate would jump into the 150s to 160s. Despite IV metoprolol patient remains tachycardic. Blood pressures have remained stable in the 140s to 150 systolic. Review of Systems Review of Systems: 12 systems were review
[2022-12-04 23:26] LABS: Hemoglobin 6.7 g/dL (14.0-18.0)
[2022-12-05] VITALS (13 sets, daily range): BP systolic 133–154; BP diastolic 66–99; PULSE 66–147; RESP 20–22; TEMP 36–36.9; O2SAT 95–100
[2022-12-05] MEDS: TUBING, BLOOD SET 1 EACH XX (00:28)
[2022-12-05] MEDS: SODIUM CHLORIDE 0.9% IV 250 ML 30 ML IV CONT (00:28)
[2022-12-05] MEDS: METOPROLOL TARTRATE INJ 5 MG/5 ML VIAL IV PUSH ×3 (00:45→02:24)
--- NOTE | 2022-12-05 02:51 | PC.NURSE ---
Report called to [facility] in ICU, pt being transfered.
--- NOTE | 2022-12-05 03:56 | PC.NURSE ---
This RN called report to Emelyn at [facility]
--- NOTE | 2022-12-05 03:57 | PC.NURSE ---
This RN called patients sister, MAURA, to update on patient being transfered to [facility]. Room number and phone number to unit given to voicemail.
[2022-12-05 04:02] LABS: Glucose Point of Care 88 mg/dl (65-105)
--- NOTE | 2022-12-05 04:24 | PC.NURSE ---
Pt left via [facility] at 0420, called [facility] to notify of departure. Patient had blood running upon departure, and pt agreeable for transfer.
== END 2022-12-05 04:23 | disposition short-term general hospital (02) ==
LOC: ANHED 17:53 → ANH3MEDSUR 12-06 10:45
PROVIDERS: Chiropractor; Admitting Provider Internal Medicine; Emergency Provider Student in an Organized Health Care Education/Training Program; PCP Family Medicine; Visit Provider Internal Medicine
DX: D64.9 Anemia, unspecified (principal); K92.2 Gastrointestinal hemorrhage, unspecified; R60.0 Localized edema; R79.9 Abnormal finding of blood chemistry, unspecified; K86.9 Disease of pancreas, unspecified; Z68.32 Body mass index [BMI] 32.0-32.9, adult; R63.4 Abnormal weight loss; I10 Essential (primary) hypertension; I48.0 Paroxysmal atrial fibrillation; E78.5 Hyperlipidemia, unspecified; E11.649 Type 2 diabetes mellitus with hypoglycemia without coma; K21.9 Gastro-esophageal reflux disease without esophagitis; M10.9 Gout, unspecified; G47.30 Sleep apnea, unspecified; G47.33 Obstructive sleep apnea (adult) (pediatric); Z99.89 Dependence on other enabling machines and devices; R94.31 Abnormal electrocardiogram [ECG] [EKG]; I77.6 Arteritis, unspecified; R53.83 Other fatigue; J44.9 Chronic obstructive pulmonary disease, unspecified; D50.9 Iron deficiency anemia, unspecified; Z90.5 Acquired absence of kidney; Z85.520 Personal history of malignant carcinoid tumor of kidney; Z79.84 Long term (current) use of oral hypoglycemic drugs; Z79.51 Long term (current) use of inhaled steroids; Z79.85 Long-term (current) use of injectable non-insulin antidiabetic drugs; Z79.4 Long term (current) use of insulin; Z79.899 Other long term (current) drug therapy; Z80.0 Family history of malignant neoplasm of digestive organs; Z82.49 Family history of ischemic heart disease and other diseases of the circulatory system; Z83.3 Family history of diabetes mellitus
CPT/HCPCS: 36415; 36430; 71045; 80053; 82948; 83690; 83880; 84484; 85014; 85018; 85025; 85610; 85730; 86850; 86900; 86901; 86920; 93005; 93970; 96374; 96375; 96376; 99285; C9113; G0378; J7050; P9016